=== PATIENT | male | born 1975 | race Caucasian/White ===

== ENCOUNTER 2017-09-09 21:09 | Emergency (ER) | payer OTHER ==
[~2017-09-09] VITALS: Ht 170.2 cm; Wt 85.0 kg
[~2017-09-09 21:09] MED LIST: FOLI-44 PO; IBUP-2070 PO; RANI150T7 PO
[2017-09-09 21:14] VITALS: BP 148/104
== END 2017-09-10 00:41 | disposition home or self-care (01) ==
LOC: EMS 21:10
DX: S00.83XA Contusion of other part of head, initial encounter (principal); F10.20 Alcohol dependence, uncomplicated; Y90.8 Blood alcohol level of 240 mg/100 ml or more; Z88.8 Allergy status to other drugs, medicaments and biological substances; W18.39XA Other fall on same level, initial encounter; Y93.89 Activity, other specified; Y92.89 Other specified places as the place of occurrence of the external cause; Y99.8 Other external cause status
CPT/HCPCS: 36415; 70450; 99285; G0480